=== PATIENT | female | born 1995 | race Caucasian/White ===

== ENCOUNTER 2016-03-25 13:52 | Emergency (ER) | payer MEDICAID ==
[2016-03-25] MEDS ORDERED: 0.9 % SODIUM CHLORIDE 1,000 ML BAG IV ONE (14:17)
[2016-03-25] MEDS ORDERED: HYDROMORPHONE HCL 1 MG/ML CPJ IVP ONE ×2 (14:24→15:06)
[2016-03-25] MEDS ORDERED: ONDANSETRON HCL IV 4 MG/2 ML VIAL IVP ONE (14:24)
--- NOTE | 2016-03-25 14:25 | Emergency Department Record ---
History of Present Illness - General Chief complaint: Flank Pain Stated complaint: RIGHT SIDE FLANK PAIN Time Seen by Provider: 03/25/16 14:17 Source: Patient, Family Mode of Arrival: Ambulatory Limitations: No limitations - History of Present Illness Initial comments: 21 yo female presents with right flank pain since yesterday. The pain comes in waves. She has had a history of numerous renal stones. She passes about 1-2 per month. No fevers. No chills. She has associated nausea and vomiting. No abdominal surgeries. No current urologist. She has been told there is nothing that can be done for frequent stones. PCP is at the [facility]. Complaint: Other (right flank pain) Onset/Timin -: Days(s) Location: Suprapubic Radiation: R flank Severity: Severe Severity scale (1-10): 10 Quality: Sharp Consistency: Constant Improves with: None Patient : No Associated Symptoms: Dysuria, Nausea/vomiting - Related Data Sexually active: No Home Medications Medication Instructions Recorded Confirmed Last Taken Ondansetron HCl [Ondansetron HCl] 4 mg PO DAILY PRN 03/25/16 03/25/16 Unknown Previous Rx's Medication Instructions Recorded Omeprazole 20 mg PO DAILY #30 tab.dr 12/28/15 Hydrocodone/Acetaminophen [[place] 1 tab PO Q6H PRN #15 tab 03/25/16 7.5mg/325mg] Ibuprofen [Motrin 600Mg] 600 mg PO Q6H #20 tablet 03/25/16 Ondansetron [Zofran Odt] 4 mg PO Q8H #15 tab.rapdis 03/25/16 Tamsulosin HCl [Flomax] 0.4 mg PO DAILY #14 cap.er.24h 03/25/16 Allergies Allergy/AdvReac Type Severity Reaction Status Date / Time latex Allergy RASH Verified 12/30/15 12:41 Travel Screening - Travel/Exposure Within Last 30 Days Have you traveled within the last 30 days?: No Review of Systems Constitutional: Denies: Chills, Fever, Malaise, Weakness Eyes: Denies: Eye discharge, Eye pain, Photophobia ENT: Denies: Congestion, Throat pain Respiratory: Denies: Cough Cardiovascular: Denies: Chest pain, Palpitations, Syncope Endocrine: Denies: Fatigue Gastrointestinal: Reports: As per HPI, Abdominal pain, Nausea, Vomiting. Denies : Constipation, Diarrhea, Hematemesis Genitourinary: Denies: Dysuria Musculoskeletal: Reports: As per HPI, Back pain. Denies: Arthralgia, Myalgia Skin: Denies: Bruising, Change in color, Rash Past Medical History - SOCIAL HISTORY Smoking Status: Current every day smoker Alcohol Use: None Drug Use: None - RESPIRATORY Hx Respiratory Disorders: No - CARDIOVASCULAR Hx Cardio Disorders: No - NEURO Hx Neuro Disorders: No - GI Hx GI Disorders: No - Hx Genitourinary Disorders: Yes Hx Kidney Stones: Yes Comment:: PCOS - ENDOCRINE Hx Endocrine Disorders: No - MUSCULOSKELETAL Hx Musculoskeletal Disorders: No - PSYCH Hx Psych Problems: No - HEMATOLOGY/ONCOLOGY Hx Hematology/Oncology Disorders: Yes Hx Anemia: Yes Family Medical History Any Significant Family History?: Yes Family Hx Comment (NOT TO BE USED IN PLACE OF ITEMS BELOW): MVP and palpitations. diabetes. nonalcoholic cirrohsis. aneurysm. rhuematoid Hx Anxiety: Father Hx Cancer: Brother/Sister, Grandparents Hx Dementia: Grandparents Hx Depression: Mother, Grandparents Hx Diabetes: Grandparents Hx Heart Disease: Grandparents Hx HTN: Father, Grandparents Hx Kidney Disease: Father Hx Liver Disease: Grandparents Hx Resp Disorders: Grandparents Hx Stroke: Grandparents *Stroke Comment: anuerysm Physical Exam - General General Appearance: Alert, Oriented x3, Cooperative, No acute distress Limitations: No limitations - Head Head exam: Atraumatic, Normal inspection - Eye Eye exam: Normal appearance, PERRL. negative: Conjunctival injection, Scleral icterus - ENT ENT exam: Normal exam Ear exam: Normal external inspection Nasal Exam: Normal inspection Mouth exam: Normal external inspection - Neck Neck exam: Normal inspection, Full ROM. negative: Tenderness - Respiratory Respiratory exam: Normal lung sounds bilaterally. negative: Respiratory distress - Cardiovascular Cardiovascular Exam: Regular rate, Normal rhythm, Normal heart sounds - GI/Abdominal GI/Abdominal exam: Soft. negative: Distended, Guarding, Rebound, Rigid, Tenderness - Rectal Rectal exam: Deferred - exam: Deferred - Extremities Extremities exam: Normal inspection, Full ROM, Normal capillary refill. negative: Tenderness - Back Back exam: Reports: CVA tenderness (R), Full ROM, Tenderness. Denies: CVA tenderness (L), Paraspinal tenderness, Rash noted, Vertebral tenderness - Neurological Neurological exam: Alert, Normal gait, Oriented X3 - Psychiatric Psychiatric exam: Normal affect, Normal mood - Skin Skin exam: Dry, Intact, Normal color, Warm Course Vital Signs 03/25/16 14:01 Temperature 98.4 F Pulse Rate 115 H Respiratory 16 Rate Blood Pressure 149/102 Pulse Ox 98 - Reevaluation(s) Reevaluation #1: UA is negative for N or LE, UCG is negative 03/25/16 14:31 03/25/16 14:40 Reevaluation #2: The labs were reviewed. No acute changes The micro UA was negative for signs of infection 03/25/16 15:07 Reevaluation #3: The pain is much improved. We discussed treating symptomatically given she reports 12-15 CT's in the past The CT scan from December does not demonstrate any abnormally large stones that would not potentially obstruct I explained this to the patient and her future risks of a cancer are not insignificant. She agrees. I offered transfer for US at another hospital but her pain is controlled at this time Will DC home on pain meds, strainer, and flomax She is to return if piin returns. 03/25/16 15:42 03/25/16 18:15 Medical Decision Making - Lab Data Result diagrams: 03/25/16 14:10 03/25/16 14:10 Disposition Disposition: Discharge Clinical Impression: Renal colic on right side Disposition: Home, Self-Care Condition: (1) Good Instructions: Renal Colic (ED) Additional Instructions: Return immediately if you have fever, uncontrolled pain, vomiting or any new concerns. Prescriptions: Tamsulosin HCl [Flomax] 0.4 mg PO DAILY #14 cap.er.24h Ibuprofen [Motrin 600Mg] 600 mg PO Q6H #20 tablet Hydrocodone/Acetaminophen [[place] 7.5mg/325mg] 1 tab PO Q6H PRN #15 tab PRN Reason: Pain - General Ondansetron [Zofran Odt] 4 mg PO Q8H #15 tab.rapdis Forms: Patient Portal Access Time of Disposition: 14:37
[2016-03-25 14:26] LABS: URINE APPEARANCE CLEAR; URINE BILIRUBIN NEGATIVE (NEGATIVE); URINE COLOR YELLOW; URINE GLUCOSE (UA) NEGATIVE (NEGATIVE); URINE KETONE 15 mg/dL (NEGATIVE)
[2016-03-25 14:27] LABS: HCG,QUALITATIVE URINE NEGATIVE (NEGATIVE); URINE BLOOD LARGE (NEGATIVE); URINE LEUKOCYTE ESTERASE NEGATIVE (NEGATIVE); URINE NITRITE NEGATIVE (NEGATIVE); URINE PROTEIN NEGATIVE (NEGATIVE); URINE UROBILINOGEN 0.2 E.U./dL (0.20 - 1.00)
[2016-03-25] MEDS ORDERED: KETOROLAC 30 MG/ML VIAL IVP ONE (14:30)
[2016-03-25 14:33] LABS: URINE EPITHELIAL CELLS 0 - 2 (FEW); URINE RBC 36 - 50 (NONE SEEN); URINE WBC 0 - 2 (0-2/hpf)
[2016-03-25] MEDS ORDERED: PREDNISONE 20 MG TAB PO ONE (14:35)
[2016-03-25 14:37] LABS: BASO % 0.4 % (0-6); EOS % 4.6 % (0-6); GRAN % 60.5 % (47-80); HEMATOCRIT 44.2 % (35.0-47.0); HEMOGLOBIN 15.4 gm/dl (11.6-16.0); LYMPH % 27.3 % (16-45); MEAN CELL VOLUME 81.7 fl (81-97); MEAN CORPUSCULAR HGB CONC 34.8 g/dl (32-36); MEAN PLATELET VOLUME 8.8 fl (7.4-10.4); MONO % 7.2 % (0-9); PLATELET COUNT 387 K/uL (130-400); RED BLOOD COUNT 5.41 M/uL (3.80-5.40); RED CELL DISTRIBUTION WIDTH 12.3 % (11.5-14.5); WHITE BLOOD COUNT W/O DIFF 12.1 K/uL (4.2-12.2)
[2016-03-25 14:40] LABS: MEAN CORPUSCULAR HEMOGLOBIN 28.4 pg (27-33)
[2016-03-25 14:53] LABS: ALB/GLOB RATIO 1.7 (1.1-1.8); ALBUMIN 4.8 gm/dL (3.5-5.0); ALKALINE PHOSPHATASE 67 U/L (38-126); ALT/SGPT 75 U/L (9-52); ANION GAP 14.1 (7-16); AST/SGOT 35 U/L (14-36); BILIRUBIN,TOTAL 0.59 mg/dL (0.2-1.3); BLOOD UREA NITROGEN 8 mg/dL (7-17); CARBON DIOXIDE 20.9 mmol/L (22-30); CREATININE 0.7 mg/dL (0.52-1.04); EST GLOMERULAR FILTRATION RATE > 60 ml/min; GLUCOSE,RANDOM 97 mg/dL (70-110); LIPASE 106 U/L (23-300); TOTAL PROTEIN 7.7 gm/dL (6.3-8.2)
[2016-03-25] MEDS ORDERED: TAMSULOSIN HCL 0.4 MG CAP.ER.24H PO ONE (15:06)
== END 2016-03-25 16:05 | disposition home or self-care (01) ==
LOC: ER 13:52
DX: N23 Unspecified renal colic (principal); R11.2 Nausea with vomiting, unspecified; R30.0 Dysuria; Z87.442 Personal history of urinary calculi
CPT/HCPCS: 99284 ×2; 96376; 96374; 96375; 83690; 85025; 80053; 81001; 81025; J1885; J2405; J1170; J7030

== ENCOUNTER 2017-04-16 15:44 | Emergency (ER) | payer MEDICAID, OTHER ==
[2017-04-16] MEDS ORDERED: 0.9 % SODIUM CHLORIDE 1,000 ML BAG IV ONE (15:54)
[2017-04-16] MEDS ORDERED: KETOROLAC 30 MG/ML VIAL IVP ONE (15:54)
[2017-04-16] MEDS ORDERED: ONDANSETRON HCL IV 4 MG/2 ML VIAL IV ONE (15:54)
[2017-04-16 16:13] LABS: BASO % 0.4 % (0-6); EOS % 4.7 % (0-6); HEMATOCRIT 45.8 % (35.0-47.0); HEMOGLOBIN 15.5 gm/dl (11.6-16.0); LYMPH % 31.2 % (16-45); MEAN CELL VOLUME 84.5 fl (81-97); MEAN CORPUSCULAR HGB CONC 33.8 g/dl (32-36); MEAN PLATELET VOLUME 8.2 fl (7.4-10.4); MONO % 6.7 % (0-9); PLATELET COUNT 370 K/uL (130-400); RED BLOOD COUNT 5.42 M/uL (3.80-5.40); RED CELL DISTRIBUTION WIDTH 12.3 % (11.5-14.5); WHITE BLOOD COUNT W/O DIFF 13.5 K/uL (4.2-12.2)
[2017-04-16 16:14] LABS: MEAN CORPUSCULAR HEMOGLOBIN 28.5 pg (27-33); URINE BILIRUBIN NEGATIVE (NEGATIVE); URINE BLOOD LARGE (NEGATIVE); URINE COLOR YELLOW; URINE GLUCOSE (UA) NEGATIVE (NEGATIVE); URINE KETONE NEGATIVE (NEGATIVE); URINE LEUKOCYTE ESTERASE NEGATIVE (NEGATIVE); URINE NITRITE NEGATIVE (NEGATIVE); URINE PROTEIN NEGATIVE (NEGATIVE); URINE UROBILINOGEN 0.2 E.U./dL (0.20 - 1.00)
[2017-04-16 16:16] LABS: URINE APPEARANCE SL CLOUDY
[2017-04-16] MEDS ORDERED: HYDROMORPHONE HCL 1 MG/ML SYRINGE IVP ONE ×2 (16:17→17:11)
[2017-04-16 16:19] LABS: HCG,QUALITATIVE URINE NEGATIVE (NEGATIVE); URINE AMORPHOUS SEDIMENT 4+; URINE BACTERIA NONE SEEN; URINE EPITHELIAL CELLS 0 - 2 (FEW); URINE RBC 36 - 50 (NONE SEEN); URINE WBC NONE SEEN (0-2/hpf)
[2017-04-16 16:25] LABS: BLOOD UREA NITROGEN 6 mg/dL (6-20)
[2017-04-16 16:26] LABS: CREATININE 0.5 mg/dL (0.5-0.9); EST GLOMERULAR FILTRATION RATE > 60 mL/min
[2017-04-16] MEDS ORDERED: ONDANSETRON HCL IV 4 MG/2 ML VIAL IVP ONE (16:26)
[2017-04-16 16:28] LABS: GLUCOSE,RANDOM 90 mg/dL (74-109)
--- NOTE | 2017-04-16 16:35 | Emergency Department Record ---
History of Present Illness - General Chief complaint: Flank Pain Stated complaint: KIDNEY STONE Time Seen by Provider: 04/16/17 15:49 Source: Patient Mode of Arrival: Ambulatory Limitations: No limitations - History of Present Illness Initial comments: pt states she has r flank pain that feels like previous kidney stones. she also has n/v Onset/Timin -: Hour(s) Location: RLQ Radiation: R flank Severity: Severe Severity scale (1-10): 10 Quality: Sharp Consistency: Constant Improves with: None Worsens with: None Patient : No LMP Date: 04/01/17 Gestational Age (wks) based on LMP: 2 Associated Symptoms: Nausea/vomiting - Related Data Previous Rx's Medication Instructions Recorded Hydrocodone/Acetaminophen [[place] 1 each PO QID #7 tablet 04/16/17 5-325 Tablet] Ibuprofen [Motrin 600Mg] 600 mg PO Q6H #20 tablet 04/16/17 Ondansetron [Zofran Odt] 4 mg PO Q8H #10 tab.rapdis 04/16/17 Allergies Allergy/AdvReac Type Severity Reaction Status Date / Time latex Allergy RASH Verified 04/16/17 15:51 Travel Screening - Travel/Exposure Within Last 30 Days Have you traveled within the last 30 days?: No Review of Systems Reviewed: No additional complaints except as noted below Constitutional: Reports: As per HPI. Denies: Chills, Fever, Malaise, Night sweats, Weakness, Weight change Eyes: Reports: As per HPI. Denies: Eye discharge, Eye pain, Photophobia, Vision change ENT: Reports: As per HPI. Denies: Congestion, Dental pain, Ear pain, Epistaxis , Hearing loss, Throat pain Respiratory: Reports: As per HPI. Denies: Cough, Dyspnea, Hemoptysis, Stridor, Wheezes Cardiovascular: Reports: As per HPI. Denies: Arrhythmia, Chest pain, Dyspnea on exertion, Edema, Murmurs, Orthopnea, Palpitations, Paroxysmal nocturnal dyspnea, Rheumatic Fever, Syncope Endocrine: Reports: As per HPI. Denies: Fatigue, Heat or cold intolerance, Polydipsia, Polyuria Gastrointestinal: Reports: As per HPI, Abdominal pain, Nausea, Vomiting. Denies : Constipation, Diarrhea, Hematemesis, Hematochezia, Melena Genitourinary: Reports: As per HPI. Denies: Abnormal menses, Discharge, Dyspareunia, Dysuria, Frequency, Hematuria, Incontinence, Retention, Urgency Musculoskeletal: Reports: As per HPI, Back pain. Denies: Arthralgia, Gout, Joint swelling, Myalgia, Neck pain Skin: Reports: As per HPI. Denies: Bruising, Change in color, Change in hair/ nails, Lesions, Pruritus, Rash Neurological: Reports: As per HPI. Denies: Abnormal gait, Confusion, Headache, Numbness, Paresthesias, Seizure, Tingling, Tremors, Vertigo, Weakness Psychiatric: Reports: As per HPI. Denies: Anxiety, Auditory hallucinations, Depression, Homicidal thoughts, Suicidal thoughts, Visual hallucinations Hematological/Lymphatic: Reports: As per HPI. Denies: Anemia, Blood Clots, Easy bleeding, Easy bruising, Swollen glands Past Medical History - SOCIAL HISTORY Smoking Status: Current every day smoker Alcohol Use: None Drug Use: None - RESPIRATORY Hx Respiratory Disorders: No - CARDIOVASCULAR Hx Cardio Disorders: No - NEURO Hx Neuro Disorders: No - GI Hx GI Disorders: No - Hx Genitourinary Disorders: Yes Hx Kidney Stones: Yes Comment:: PCOS - ENDOCRINE Hx Endocrine Disorders: No - MUSCULOSKELETAL Hx Musculoskeletal Disorders: No - PSYCH Hx Psych Problems: No - HEMATOLOGY/ONCOLOGY Hx Hematology/Oncology Disorders: Yes Hx Anemia: Yes Family Medical History Any Significant Family History?: Yes Family Hx Comment (NOT TO BE USED IN PLACE OF ITEMS BELOW): MVP and palpitations. diabetes. nonalcoholic cirrohsis. aneurysm. rhuematoid Hx Anxiety: Father Hx Cancer: Brother/Sister, Grandparents Hx Dementia: Grandparents Hx Depression: Mother, Grandparents Hx Diabetes: Grandparents Hx Heart Disease: Grandparents Hx HTN: Father, Grandparents Hx Kidney Disease: Father Hx Liver Disease: Grandparents Hx Resp Disorders: Grandparents Hx Stroke: Grandparents *Stroke Comment: anuerysm Physical Exam - General General Appearance: Alert, Oriented x3, Cooperative, Mild distress - Head Head exam: Normal inspection - Eye Eye exam: Normal appearance, PERRL, EOMI Pupils: Normal accommodation - ENT ENT exam: Normal exam, Mucous membranes moist, Normal external ear exam, Normal orophraynx Ear exam: Normal external inspection. negative: External canal tenderness Nasal Exam: Normal inspection. negative: Discharge, Sinus tenderness Mouth exam: Normal external inspection, Tongue normal Teeth exam: Normal inspection. negative: Dental caries Throat exam: Normal inspection. negative: Tonsillar erythema, Tonsillar exudate - Neck Neck exam: Normal inspection, Full ROM. negative: Tenderness - Respiratory Respiratory exam: Normal lung sounds bilaterally. negative: Respiratory distress - Cardiovascular Cardiovascular Exam: Regular rate, Normal rhythm, Normal heart sounds - GI/Abdominal GI/Abdominal exam: Soft, Normal bowel sounds, Tenderness - Rectal Rectal exam: Deferred - exam: Deferred - Extremities Extremities exam: Normal inspection, Full ROM, Normal capillary refill. negative: Tenderness - Back Back exam: Reports: Normal inspection, CVA tenderness (R), Full ROM. Denies: Muscle spasm, Rash noted, Tenderness - Neurological Neurological exam: Alert, Normal gait, Oriented X3, Reflexes normal - Psychiatric Psychiatric exam: Normal affect, Normal mood - Skin Skin exam: Dry, Intact, Normal color, Warm Course Vital Signs 04/16/17 15:49 Temperature 98.0 F Pulse Rate 91 H Respiratory 18 Rate Blood Pressure 144/115 Pulse Ox 99 - Reevaluation(s) Reevaluation #1: 04/16/17 17:38 pts us was neg. no stone or hydronephrosis. pt was reassessed and i d/w her the need for a ct to rule out appendicitis however pt states she no longer has pain in the rlq and since she has had many cts the decision was made to not do a ct at this time. pt was told that if her pain in rlq returns she should be checked again. Medical Decision Making - Lab Data Result diagrams: 04/16/17 16:00 04/16/17 16:00 Lab Results 04/16/17 04/16/17 04/16/17 Range/Units 16:00 16:00 16:00 WBC 13.5 H (4.2-12.2) K/uL RBC 5.42 H (3.80-5.40) M/uL Hgb 15.5 (11.6-16.0) gm/dl Hct 45.8 (35.0-47.0) % MCV 84.5 (81-97) fl MCH 28.5 (27-33) pg MCHC 33.8 (32-36) g/dl RDW 12.3 (11.5-14.5) % Plt Count 370 (130-400) K/uL MPV 8.2 (7.4-10.4) fl Gran % 57.0 (47-80) % Lymphocytes % 31.2 (16-45) % Monocytes % 6.7 (0-9) % Eosinophils % 4.7 (0-6) % Basophils % 0.4 (0-6) % Sodium 144 (136-145) mmol/L Potassium 4.0 (3.4-4.5) mmol/L Chloride 105 (98-107) mmol/L Carbon Dioxide 29.0 (22-29) mmol/L Anion Gap 10.0 (7-16) BUN 6 (6-20) mg/dL Creatinine 0.5 (0.5-0.9) mg/dL Estimated GFR > 60 mL/min Random Glucose 90 (74-109) mg/dL Calcium 9.0 (8.6-10.0) mg/dL Urine Color Yellow Urine Appearance Sl cloudy Urine pH 7.0 (5.0-8.0) Ur Specific [place] 1.020 (1.002-1.030) Urine Protein Negative (NEGATIVE) Urine Glucose (UA) Negative (NEGATIVE) Urine Ketones Negative (NEGATIVE) Urine Blood Large H (NEGATIVE) Urine Nitrite Negative (NEGATIVE) Urine Bilirubin Negative (NEGATIVE) Urine Urobilinogen 0.2 (0.20 - 1.00) E.U./dL Ur Leukocyte Esterase Negative (NEGATIVE) Urine RBC 36 - 50 (NONE SEEN) Urine WBC None seen (0-2/hpf) Ur Epithelial Cells 0 - 2 (FEW) Amorphous Sediment 4+ Urine Bacteria None seen Urine HCG, Qual Negative (NEGATIVE) Disposition Disposition: Discharge Clinical Impression: Renal colic on right side Disposition: Home, Self-Care Condition: (1) Good Instructions: Acute Abdominal Pain (ED), Flank Pain (ED) Additional Instructions: recheck in 24 hours if right lower quadrant pain returns. return sooner if worse. rest Prescriptions: Hydrocodone/Acetaminophen [[place] 5-325 Tablet] 1 each PO QID #7 tablet Ibuprofen [Motrin 600Mg] 600 mg PO Q6H #20 tablet Ondansetron [Zofran Odt] 4 mg PO Q8H #10 tab.rapdis Forms: Patient Portal Access Quality - Quality Measures Quality Measures: N/A - Blood Pressure Screening Does Patient Have Any of the Following: No Blood Pressure Classification: Hypertensive Reading Systolic Measurement: 144 Diastolic Measurement: 115 Screening for High Blood Pressure: < First Hypertensive BP, F/U Documented > [ [id number]] First Hypertensive Follow-up Interventions: Follow-up with rescreen GT 1 day and LT 4 weeks.
--- NOTE | 2017-04-17 15:08 | ULTRASOUND REPORT ---
EXAM: RETROPERITONEAL ULTRASOUND HISTORY: RIGHT FLANK PAIN SINCE THIS MORNING. NAUSEA. TECHNIQUE: Sonographic evaluation of the right kidney and urinary bladder was performed. The patient terminated the examination prior to imaging the left kidney. Comparison: Previous CT scan of the abdomen and pelvis dated 12/30/15. FINDINGS: The urinary bladder is only partially distended, but normal in appearance. The bladder empties completely with voiding. The right kidney is normal in appearance and size measuring 11 x 4 x 6.1 cm. There is no hydronephrosis, mass, or calculus. IMPRESSION: 1. NORMAL RIGHT KIDNEY AND URINARY BLADDER. 2. THE PATIENT TERMINATED THE EXAMINATION PRIOR TO IMAGING THE LEFT KIDNEY. JOB NUMBER: [id number] MTDD
== END 2017-04-16 17:56 | disposition home or self-care (01) ==
LOC: ER 15:44
DX: N23 Unspecified renal colic (principal); R10.31 Right lower quadrant pain; R11.2 Nausea with vomiting, unspecified; Z87.442 Personal history of urinary calculi
CPT/HCPCS: 99284 ×2; 96376; 96374; 96375; 96361; 85025; 80048; 81001; 81025; 76775; J1885; J2405; J1170; J7030